=== PATIENT | female | born 2000 | race Caucasian/White ===

== ENCOUNTER 2023-05-23 16:24 | Emergency (ER) | payer OTHER ==
[~2023-05-23] VITALS: Ht 157.5 cm; Wt 77.6 kg
[2023-05-23 16:28] VITALS: BP 155/81; PULSE 80; RESP 12
[2023-05-23 17:38] LABS: APPEARANCE,URINE CLEAR (CLEAR); BILIRUBIN,URINE NEGATIVE (NEGATIVE); COLOR,URINE LIGHT-YELLOW (YELLOW); GLUCOSE, URINE (UA) NEGATIVE (NEGATIVE); KETONES,URINE NEGATIVE (NEGATIVE); LEUKOCYTE ESTERASE ,URINE NEGATIVE Leu/uL (NEGATIVE); NITRATE,URINE NEGATIVE (NEGATIVE); OCCULT BLOOD,URINE NEGATIVE (NEGATIVE); PH,URINE 6.5 (5.0-8.0); PROTEIN,URINE NEGATIVE (NEGATIVE); UROBILINOGEN,URINE 0.2 mg/dL (0.2-1.0)
[2023-05-23 17:40] VITALS: TEMP 99.9
[2023-05-23] MEDS: ACETAMINOPHEN 500 MG TABLET PO ONE (17:40)
[2023-05-23 17:41] LABS: ADD UA MICROSCOPIC NO
== END 2023-05-23 18:48 | disposition home or self-care (01) ==
LOC: EDH 16:24
DX: R07.89 Other chest pain (principal)
CPT/HCPCS: 36415; 81003; 84484; 93005